=== PATIENT | female | born 1940 | race Caucasian/White ===

== ENCOUNTER 2021-05-30 11:47 | Inpatient (IN) | payer OTHER ==
[~2021-05-30] VITALS: Ht 162.6 cm; Wt 65.0 kg
[2021-05-30] MEDS ORDERED: JANTOVEN4 MG PO (12:00)
[2021-05-30] MEDS ORDERED: AMOXICILLIN875 MG PO (12:01)
[2021-05-30] MEDS ORDERED: DILTIAZEM 24HR180 MG (12:01)
== END 2021-06-06 10:48 | disposition home or self-care (01) | DRG 300 ==
LOC: ER 11:47 → MEDI 22:03
PROVIDERS: ADMIT Internal Medicine; ATTEND Internal Medicine
PROC: B54DZZZ Ultrasonography of Bilateral Lower Extremity Veins (ICD-10-PCS; principal; 2021-05-30)
DX: I83.209 Varicose veins of unspecified lower extremity with both ulcer of unspecified site and inflammation (principal); L97.528 Non-pressure chronic ulcer of other part of left foot with other specified severity; L97.518 Non-pressure chronic ulcer of other part of right foot with other specified severity; L08.89 Other specified local infections of the skin and subcutaneous tissue; B95.2 Enterococcus as the cause of diseases classified elsewhere; B95.7 Other staphylococcus as the cause of diseases classified elsewhere; I99.8 Other disorder of circulatory system; I48.91 Unspecified atrial fibrillation; Z20.822 Contact with and (suspected) exposure to COVID-19; I10 Essential (primary) hypertension